=== PATIENT | male | born 1960 | race Caucasian/White ===

== ENCOUNTER 2017-02-15 07:47 | Day surgery (SDC) | payer BC ==
[2017-02-15] MEDS ORDERED: Sodium Chloride 0.9% 1,000 ML IV SCH (08:00)
[2017-02-15] MEDS ORDERED: Sodium Chloride 0.9% 5 ML Syringe FLUSH PRN (08:00)
[2017-02-15] MEDS ORDERED: EPINEPHrine 1:10,000 1 MG/10 ML Syringe ONE (08:18)
[2017-02-15] MEDS ORDERED: Propofol 200 MG/20 ML SDV ONE ×3 (08:25→09:33)
[2017-02-15] MEDS ORDERED: fentaNYL 100 MCG/2 ML SDV ONE ×2 (08:25→09:33)
[2017-02-15] MEDS ORDERED: Midazolam 1 MG/ML 2 ML SDV ONE ×2 (08:25→09:33)
[2017-02-15] MEDS ORDERED: Propofol 200 MG/20 ML SDV IV ONE (09:34)
--- NOTE | 2017-02-15 10:06 | PCM.OPNOTE ---
- General Post-Op/Procedure Note Date of Surgery/Procedure: 02/15/17 Operative Procedure(s): Colonoscopy Pre Op Diagnosis: Previous history of colon polyps Post-Op Diagnosis: Same Anesthesia Technique: MAC Primary Surgeon: Annie Arrington Complications: None Condition: Good Free Text/Narrative:: INFORMED CONSENT: Patient is here today for elective colonoscopy. All aspects of this procedure have been discussed with the patient. All possible complications also, including possibility of perforation, infection, pain, bleeding and unknown complications. In the event of perforation patient may need to have abdominal exploration, colon resection, colostomy and even was discussed. Anesthetic complications were handled by anesthesia department. The patient understands fully well. Patient did not have any further questions for me at the end of my interview. The patient wishes for me to proceed. PREOPERATIVE DIAGNOSIS/INDICATIONS: [history of colon polyps] POSTOPERATIVE DIAGNOSIS: [as above no recurrent polyps] INSTRUMENT USED: Olympus videocolonoscope. ASA CLASSIFICATION: [2] ANESTHESIA: Continuous EKG, oximetry and intermittent blood pressure and respiratory monitoring were performed throughout the procedure. IV Versed and Fentanyl were administered. PROCEDURE PERFORMED: Colonoscopy POSITIONS OF PATIENT: Left lateral. RECTUM: Normal. SIGMOID COLON: Normal. DESCENDING COLON: Normal. SPLENIC FLEXURE: Normal. TRANSVERSE COLON: Normal. HEPATIC FLEXURE: Normal. ASCENDING COLON: Normal. CECUM: Normal. ILEOCECAL VALVE: Normal. BIOPSY: None. TOLERANCE: Excellent. COMPLICATIONS: None.
[2017-02-15 11:18] VITALS: BP 192/93
== END 2017-02-15 11:15 | disposition home or self-care (01) ==
LOC: KA.SDS 07:47
PROVIDERS: ATTEND Family Medicine
DX: Z12.11 Encounter for screening for malignant neoplasm of colon (principal); I10 Essential (primary) hypertension; E11.9 Type 2 diabetes mellitus without complications; E78.5 Hyperlipidemia, unspecified; Z79.84 Long term (current) use of oral hypoglycemic drugs; G47.33 Obstructive sleep apnea (adult) (pediatric); E66.9 Obesity, unspecified; E66.01 Morbid (severe) obesity due to excess calories; N40.0 Benign prostatic hyperplasia without lower urinary tract symptoms; Z68.42 Body mass index [BMI] 45.0-49.9, adult; Z98.890 Other specified postprocedural states; Z98.52 Vasectomy status
CPT/HCPCS: 45378; 82962; J2250; J2704; J3010; J7030